=== PATIENT | female | born 1955 | race Caucasian/White ===

== ENCOUNTER 2017-08-16 20:20 | Inpatient (IN) | payer BC ==
[~2017-08-16] VITALS: Ht 157.5 cm; Wt 80.3 kg
[~2017-08-16 20:20] MED LIST: AMOX-423 PO; PRO40 PO; ROSU10TA PO; TRAM50TA92 PO
[2017-08-16 20:35] VITALS: BP_SYST 162
--- NOTE | 2017-08-16 20:47 | NUR ---
Patient to ER bed 8 to gown for evaluation. Side rails up.
--- NOTE | 2017-08-16 20:58 | NUR ---
Pt in bed 8 with c/o flank and pelvic pain . Dr Bradley aware.
--- NOTE | 2017-08-16 20:59 | NUR ---
ER at bedside examining patient.
[2017-08-16] MEDS ORDERED: KETOROLAC TROMETHAMINE 30 MG VIAL IVP ONE (21:00)
[2017-08-16] MEDS ORDERED: MORPHINE 4 MG/ML INJ. SYRINGE IVP ONE (21:00)
[2017-08-16] MEDS ORDERED: NACL 0.9% 1,000 ML IV ONE (21:00)
[2017-08-16 21:04] LABS: BILIRUBIN,URINE NEGATIVE (NEGATIVE); BLOOD, URINE 3+ (NEGATIVE); CLARITY/URINE SL HAZY (CLEAR); COLOR,URINE YELLOW (YELLOW); GLUCOSE,URINE NEGATIVE (NEGATIVE); KETONES,URINE NEGATIVE (NEGATIVE); LEUKOCYTE ESTERASE ,URINE 1+ (NEGATIVE); NITRITE, URINE NEGATIVE (NEGATIVE); PROTEIN URINE TRACE (NEGATIVE); UROBILINOGEN,URINE 0.2 (0.2-1.0)
--- NOTE | 2017-08-16 21:10 | NUR ---
# 20 gauge angiocath placed to LAC. Use of asceptic technique. Opsite placed over site. Blood return noted. Blood for lab drawn from site. Flushed with 10 cc of normal saline. No evidence of infiltration noted. Patient tolerated well.
[2017-08-16 21:15] LABS: BACTERIA,URINE MODERATE /HPF (None Seen); MUCUS,URINE None Seen /LPF (None Seen); RBC,URINE 50-80 /HPF (0-3); WBC,URINE 0-3 /HPF (0-3)
[2017-08-16 21:26] LABS: BASOPHILS % (AUTO) 0.7 % (0.0-2.0); EOSINOPHILS # (AUTO) 0.1 K/uL (0.0-0.4); EOSINOPHILS % (AUTO) 2.3 % (0.0-4.0); HEMATOCRIT 44.5 % (36-48); HEMOGLOBIN 15.1 g/dL (12.0-16.0); LYMPHOCYTES # (AUTO) 1.4 K/uL (1.0-5.5); LYMPHOCYTES % (AUTO) 28.9 % (20.5-51.5); MEAN CORPUSCULAR HEMOGLOBIN 31 pg (27-31); MEAN CORPUSCULAR HGB CONC 34 % (32-36); MEAN CORPUSCULAR VOLUME 90 fL (79.0-98.0); MONOCYTES # (AUTO) 0.6 K/uL (0.0-1.0); MONOCYTES % (AUTO) 11.3 % (1.7-9.3); NEUTROPHILS # (AUTO) 2.8 K/uL (1.8-7.7); NEUTROPHILS % (AUTO) 56.8 % (40.0-70.0); PLATELET COUNT (AUTO) 214 K/uL (130-430); RED BLOOD CELL COUNT(AUTO) 4.92 MIL/uL (4.2-6.2); RED CELL DISTRIBUTION WIDTH 11.9 % (9.0-15.0); WHITE BLOOD COUNT (AUTO) 4.9 K/uL (4.8-10.8)
[2017-08-16] MEDS ORDERED: cefTRIAXone 1 GM IVPB PREMIX 50 ML IV ONE (21:30)
[2017-08-16 21:31] LABS: CALCIUM 8.8 mg/dL (8.4-11.0); CREATININE 0.64 mg/dL (0.55-1.30); POTASSIUM 3.5 mmol/L (3.5-5.1)
--- NOTE | 2017-08-16 21:40 | NUR ---
Per ED MD Bradley, blood cultures not to be obtained for administration of IV ABX. Urine culture ordered prior to administration of ABX.
[2017-08-16 21:43] LABS: ALBUMIN 3.4 g/dL (3.4-4.8); TOTAL BILIRUBIN 0.2 mg/dL (0.0-1.0)
--- NOTE | 2017-08-16 21:45 | NUR ---
Patient transported to radiology via gurney, accompanied by cardiac technologist.
--- NOTE | 2017-08-16 21:58 | NUR ---
Returned from radiology, back to [facility].
[2017-08-16] MEDS ORDERED: GABA-529 PO (22:50)
[2017-08-16] MEDS ORDERED: ACETAMINOPHEN 325 MG TABLET PO PRN (23:00)
[2017-08-16] MEDS ORDERED: ONDANSETRON HCL 4 MG/2 ML VIAL IVP PRN (23:00)
[2017-08-16] MEDS ORDERED: HYDROcodone/ACETAMIN 5-325 MG TAB (NORCO/ VICODIN) PO PRN (23:00)
--- NOTE | 2017-08-16 23:09 | NUR ---
Patient will be admitted to care of DR HERNANDEZ. Admitted to M/S unit. Belongings list completed. Summary report printed. Report will be given at bedside.
--- NOTE | 2017-08-16 23:19 | NUR ---
ADMISSION NOTE Received patient from ER via [facility], received report from Moira ECHEVERRIA. Patient admitted with diagnosis of Renal Colic / Hydronephrosis. Patient oriented to hospital routine, call light, toileting and safety-patient verbalized understanding.
--- NOTE | 2017-08-16 23:20 | NUR ---
Admitted to M/S unit. Transported to room 116A . Summary report printed. Report given to Torres ECHEVERRIA at bedside.
[2017-08-16 23:30] VITALS: BP_SYST 127
--- NOTE | 2017-08-16 23:34 | NUR ---
INITIAL NOTE Patient resting on the bed. No acute distress. AAO x 4. Stated the abdomen pain started come again a little bit. Skin warm and dry to touch. SL intact to LAC, no redness, no swelling. Daughter at bedside. Discussed the safety issue, use call light when need help, and plan of care, verbally understanding. Safety measure maintained. Bed locked with low position, side rails up. Call light within reached. Will continue to monitor
[2017-08-17] VITALS (7 sets, daily range): BP systolic 121–141
[2017-08-17] MEDS: KCL 20 mEq in NS 1000 mL 1,000 ML IV SCH ×3 (00:08→20:08)
[2017-08-17] MEDS: MORPHINE 2 MG/ML INJ. SYRINGE IVP PRN ×3 (01:30→20:10)
--- NOTE | 2017-08-17 01:30 | NUR ---
MORPHINE GIVEN Patient c/o abdomen pain 12/29, Morphine 1mg IVP given as ordered. No acute distress. IV intact, IVF infusing well. Safety measure maintained. Bed locked with low position, side rails up. Call light within reached. Continue to monitor.
--- NOTE | 2017-08-17 01:30 | NUR ---
Consult Called for Nicolas Ca Reason for consultation: Hydronephrosis Person who was notified: Carmel Marin by Dr. Farrell
--- NOTE | 2017-08-17 03:42 | NUR ---
ROUND Patient resting on the bed. Respiration even and unlabored. No acute distress. IV intact, IVF infusing well. Safety measure maintained. Bed locked with low position, side rails up. Call light within reached. Continue to monitor.
--- NOTE | 2017-08-17 05:08 | NUR ---
BATHROOM Ambulated to bathroom with assistance, void freely with yellow urine. Assisted back to bed. No acute distress. Respiration even and unlabored. Denied of pain at this time. IV intact, IVF infusing well. Safety measure maintained. Bed locked with bed alarm, side rails up. Call light within reached. Continue to monitor.
[2017-08-17 06:46] LABS: BASOPHILS % (AUTO) 0.5 % (0.0-2.0); EOSINOPHILS # (AUTO) 0.2 K/uL (0.0-0.4); EOSINOPHILS % (AUTO) 2.8 % (0.0-4.0); HEMATOCRIT 42.3 % (36-48); HEMOGLOBIN 14.3 g/dL (12.0-16.0); LYMPHOCYTES # (AUTO) 1.5 K/uL (1.0-5.5); LYMPHOCYTES % (AUTO) 27.2 % (20.5-51.5); MEAN CORPUSCULAR HEMOGLOBIN 31 pg (27-31); MEAN CORPUSCULAR HGB CONC 34 % (32-36); MEAN CORPUSCULAR VOLUME 91 fL (79.0-98.0); MONOCYTES # (AUTO) 0.6 K/uL (0.0-1.0); MONOCYTES % (AUTO) 11.5 % (1.7-9.3); NEUTROPHILS # (AUTO) 3.1 K/uL (1.8-7.7); PLATELET COUNT (AUTO) 200 K/uL (130-430); RED BLOOD CELL COUNT(AUTO) 4.63 MIL/uL (4.2-6.2); RED CELL DISTRIBUTION WIDTH 12.2 % (9.0-15.0); WHITE BLOOD COUNT (AUTO) 5.4 K/uL (4.8-10.8)
--- NOTE | 2017-08-17 06:55 | NUR ---
CLOSING NOTE Patient resting on the bed. No acute distress. Denied of pain at this time. Skin warm and dry to touch. IV intact to LAC, no redness, no swelling.On KCL 20mEq in NS at 100ml/hr, infusing well. All needs met. Hourly rounding during shift. Assisted to bathroom. Safety measure maintained. Bed locked with low position, side rails up. Call light within reached. Will endorse to morning shift nurse.
[2017-08-17 07:32] LABS: CREATININE 0.39 mg/dL (0.55-1.30); POTASSIUM 3.4 mmol/L (3.5-5.1); TOTAL BILIRUBIN 0.4 mg/dL (0.0-1.0)
--- NOTE | 2017-08-17 08:00 | NUR ---
Initial notes: Patient on bed awake, alert and oriented. Stable. I.V. access patent. Discussed plan of care. Safety measures in placed. Call light within reach. Report received at bedside.
[2017-08-17] MEDS: GABAPENTIN 100 MG CAPSULE PO SCH ×2 (08:34→20:09)
[2017-08-17] MEDS: FAMOTIDINE 20 MG TABLET PO SCH (08:34)
--- NOTE | 2017-08-17 08:36 | NUR ---
rounds: Patient on bed resting. talking to staff. no distress noted.
[2017-08-17] MEDS ORDERED: cefTRIAXone 1 GM IVPB PREMIX 50 ML IV ONE (11:00)
[2017-08-17] MEDS ORDERED: POTASSIUM CHLORIDE 10 MEQ TAB.PRT.SR PO ONE (11:00)
--- NOTE | 2017-08-17 11:54 | NUR ---
rounds: patient on bed talking to CM. No distress noted.
[2017-08-17] MEDS ORDERED: TAMSULOSIN HCL 0.4 MG CAP PO ONE (12:30)
--- NOTE | 2017-08-17 12:47 | NUR ---
Rounds: patient on bed resting. no distress noted.
--- NOTE | 2017-08-17 15:03 | NUR ---
CONSULTATION WAS CALLED RE: H/O UC LOOSE BM DAILY WITH SPECKS OF BLOOD SPOKE WITH TOMAS FROM DR. FISHER OFFICE .
--- NOTE | 2017-08-17 16:36 | NUR ---
transfer of care: Patient transfer of care to JACKI Mott. Report given at bedside.
--- NOTE | 2017-08-17 16:50 | NUR ---
TRANSFER OF CARE Received pt in bed, no s/s of distress or sob noted, pt has no c/o pain at this time, pt in stable condition, pt aaox4, verbal. IV catheter patent, no signs of infection or infiltration noted, IV fluids running as prescribed. Bed at lowest position, call light within reach, will continue to monitor pt for any changes, safety precautions in place.
--- NOTE | 2017-08-17 18:47 | NUR ---
CLOSING NOTE Pt in bed, no s/s of distress or sob noted, pt has no c/o pain at this time, pt in stable condition, pt aaox4, verbal. IV catheter patent, no signs of infection or infiltration noted, IV fluids running as prescribed. Bed at lowest position, call light within reach, will endorse care of pt to incoming nurse, safety precautions in place.
--- NOTE | 2017-08-17 19:52 | NUR ---
INITIAL NOTES Received patient on bed awake and alert with family on the bedside on semi ramos's position, maintained position of comfort maintained safety precautions, breathing even and unlabored, no sob noted with pain level of 7/10 on the abdomen and back area. explained the plan of care and verbalized understanding. encouraged deep breathing and relaxation. will continue to monitor call light within reach.
[2017-08-17] MEDS ORDERED: LACTOBACILLUS RHAMNOSUS GG 1 CAP CAPSULE PO ONE (21:30)
--- NOTE | 2017-08-17 21:55 | NUR ---
rn rounds Patient on bed sleeping and resting, breathing even and unlabored, maintained position of comfort, maintained safety precaution, will continue to monitor call light within reach
[2017-08-17] MEDS ORDERED: metroNIDAZOLE 500 mg/NS 200 ML IV ONE (22:56)
[2017-08-17] MEDS: metroNIDAZOLE 500 mg/NS 100 ML IV SCH (23:00)
--- NOTE | 2017-08-18 | NUR ---
RN ROUNDS PATIENT ON BED SLEEPING AND RESTING BREATHING EVEN AND UNLABORED, DUE MEDICATIONS GIVEN, INSTRUCTIONS GIVEN TO COLLECT STOOL AND VERBALIZED UNDERSTANDING. WILL CONTINUE TO MONITOR, CALL LIGHT WITHIN REACH.
--- NOTE | 2017-08-18 04:00 | NUR ---
RN ROUNDS PATIENT ON BED SLEEPING AND RESTING BREATHING EVEN AND UNLABORED NO SOB NOTED MAINTAINED POSITION OF COMFORT MAINTAINED SAFETY PRECAUTION, NO PAIN NOTED. CALL LIGHT WITHIN REACH WILL CONTINUE TO MONITOR.
[2017-08-18] MEDS: metroNIDAZOLE 500 mg/NS 100 ML IV SCH ×3 (05:41→21:04)
--- NOTE | 2017-08-18 06:36 | NUR ---
RN NOTES PATIENT ON BED SLEEPING AND RESTING BREATHING EVEN AND UNLABORED NO SOB NOTED NO PAIN NOTED MAINTAINED SAFETY PRECAUTIONS MAINTAINED POSITION OF COMFORT PATIENT WILL STILL NEED TO COLLECT STOOL SAMPLE, PATIENT UNDERSTANDS WELL. WILL CONTINUE TO MONITOR CALL LIGHT WITHIN REACH.
--- NOTE | 2017-08-18 06:58 | NUR ---
CLOSING NOTE NO CHANGES NOTED, WILL GIVE REPORT OT AM NURSE WILL CONTINUE TO MONITOR, CALL LIGHT WITHIN REACH.
[2017-08-18 07:17] LABS: BASOPHILS % (AUTO) 0.7 % (0.0-2.0); EOSINOPHILS # (AUTO) 0.1 K/uL (0.0-0.4); EOSINOPHILS % (AUTO) 2.2 % (0.0-4.0); HEMATOCRIT 47.8 % (36-48); HEMOGLOBIN 15.7 g/dL (12.0-16.0); LYMPHOCYTES # (AUTO) 1.5 K/uL (1.0-5.5); LYMPHOCYTES % (AUTO) 28.6 % (20.5-51.5); MEAN CORPUSCULAR HEMOGLOBIN 30 pg (27-31); MEAN CORPUSCULAR HGB CONC 33 % (32-36); MEAN CORPUSCULAR VOLUME 91 fL (79.0-98.0); MONOCYTES # (AUTO) 0.5 K/uL (0.0-1.0); MONOCYTES % (AUTO) 10.5 % (1.7-9.3); NEUTROPHILS # (AUTO) 3.1 K/uL (1.8-7.7); PLATELET COUNT (AUTO) 220 K/uL (130-430); RED BLOOD CELL COUNT(AUTO) 5.24 MIL/uL (4.2-6.2); WHITE BLOOD COUNT (AUTO) 5.2 K/uL (4.8-10.8)
[2017-08-18 07:41] LABS: ALBUMIN 3.5 g/dL (3.4-4.8); CREATININE 0.58 mg/dL (0.55-1.30); POTASSIUM 3.7 mmol/L (3.5-5.1); THYROID STIMULATING HORMONE 0.79 uIu/mL (0.34-4.82); TOTAL BILIRUBIN 0.5 mg/dL (0.0-1.0)
[2017-08-18] MEDS: LACTOBACILLUS RHAMNOSUS GG 1 CAP CAPSULE PO SCH ×2 (08:28→21:03)
[2017-08-18] MEDS: FAMOTIDINE 20 MG TABLET PO SCH (08:28)
[2017-08-18] MEDS: TAMSULOSIN HCL 0.4 MG CAP PO SCH (08:29)
[2017-08-18] MEDS: GABAPENTIN 100 MG CAPSULE PO SCH ×2 (08:29→21:03)
[2017-08-18 08:30] VITALS: BP_SYST 145
[2017-08-18] MEDS: cefTRIAXone 1 GM IVPB PREMIX 50 ML IV SCH (08:30)
--- NOTE | 2017-08-18 08:30 | NUR ---
OPENING NOTE LATE ENTRY DUE TO PT CARE: REPORT IS RECEIVED FROM RA[employer]WAY [employer] WORKER NURSE AND CARE IS ENDORSED OVER TO MYSELF. PT IS RECEIVED AWAKE, ALERT, AND ORIENTED X4. NO SIGNS OR SYMPTOMS OF DISTRESS OR SOB NOTED. PT DENIES ANY PAIN. WHITE BOARD IS UPDATED WITH CURRENT INFORMATION. PT ADVISED THAT WE NEED TO COLLECT STOOL SAMPLE AND A HAT FOR THE RESTROOM WAS PROVIDED. PT WAS ALSO ADVISED THAT ALL URINE NEEDS TO BE STRAINED. CURRENT NEEDS ARE MET BED IS AT LOWEST POSITION, CALL LIGHT WITHIN REACH, TWO SIDE RAILS UP, BED ALARM IS ON. WILL CONTINUE TO MONITOR.
[2017-08-18] MEDS: KCL 20 mEq in NS 1000 mL 1,000 ML IV SCH ×3 (10:23→22:19)
[2017-08-18] MEDS: MORPHINE 2 MG/ML INJ. SYRINGE IVP PRN ×2 (10:24→14:35)
--- NOTE | 2017-08-18 10:30 | NUR ---
ROUNDS LATE ENTRY DUE TO PT CARE: PT IS SLEEPING BUT IS EASILY AWAKEN. NO SIGNS OR SYMPTOMS OF DISTRESS OR SOB NOTED. PT COMPLAINED OF PAIN AND WAS GIVEN MORPHINE FOR HEADACHE OF 7 OUT OF 10. PT ADVISED TO USE CALL LIGHT FOR INCREASE RISK OF FALLS. DAUGHTER IS AT BEDSIDE. CURRENT NEEDS ARE MET. BED IS AT LOWEST POSITION, CALL LIGHT WITHIN REACH, TWO SIDE RAILS UP, BED ALARM IS ON. WILL CONTINUE TO MONITOR.
[2017-08-18 12:22] VITALS: BP_SYST 132
--- NOTE | 2017-08-18 12:30 | NUR ---
ROUNDS LATE ENTRY DUE TO PT CARE: PT IS AWAKE AND ALERT. NO SIGNS OR SYMPTOMS OF DISTRESS OR SOB NOTED. PT DENIES ANY PAIN. STOOL SAMPLE WAS TAKEN TO LAB. CURRENT NEEDS ARE MET. BED IS AT LOWEST POSITION, CALL LIGHT WITHIN REACH, TWO SIDE RAILS UP, BED ALARM IS ON. WILL CONTINUE TO MONITOR.
--- NOTE | 2017-08-18 14:30 | NUR ---
ROUNDS LATE ENTRY DUE TO PT CARE: PT IS SLEEPING BUT IS EASILY AWAKEN. NO SIGNS OR SYMPTOMS OF DISTRESS OR SOB NOTED. PT COMPLAINED OF HEADACHE AND PAIN OF 8 OUR OF 10 AND WAS GIVEN PRN MORPHINE AND ADVISED OF INCREASE RISK FOR FALL AND TO USE THE CALL LIGHT IF SHE WANTS TO GET UP. SPOUSE IS AT BEDSIDE. CURRENT NEEDS ARE MET. BED IS AT LOWEST POSITION, CALL LIGHT WITHIN REACH, TWO SIDE RAILS UP, BED ALARM IS ON. WILL CONTINUE TO MONITOR.
[2017-08-18 16:27] VITALS: BP_SYST 145
--- NOTE | 2017-08-18 16:28 | NUR ---
MD GUY CALLED LISANDRA POOLE AT [phone] SPOKE WITH RICHMOND.
--- NOTE | 2017-08-18 16:30 | NUR ---
ROUNDS LATE ENTRY DUE TO PT CARE: PT IS SLEEPING BUT IS EASILY AWAKEN. NO SIGNS OR SYMPTOMS OF DISTRESS OR SOB NOTED. PT COMPLAINS OF NAUSEA AND WAS GIVEN PRN ZOFRAN. CURRENT NEEDS ARE MET. BED IS AT LOWEST POSITION, CALL LIGHT WITHIN REACH, TWO SIDE RAILS UP, BED ALARM IS ON. WILL CONTINUE TO MONITOR.
--- NOTE | 2017-08-18 18:43 | NUR ---
DR. SERRA SPOKE WITH DR. SERRA TO CLARIFY SIGMOIDOSCOPY FOR TOMORROW AND STATED THAT NO VIGNESH JUST THE ORAL MAG. PT HAS SIGNED CONCENT.
[2017-08-18] MEDS ORDERED: MAGNESIUM CITRATE 300 ML ORAL SOLUTION PO ONE (19:00)
--- NOTE | 2017-08-18 19:55 | NUR ---
PM OPENING NOTES RECEIVED PATIENT ON BED, AWAKE, ALERT AND VERBALLY RESPONSIVE WATCHING TV AT THIS TIME. NO SIGN OF RESPIRATORY DISTRESS AND NO COMPLAIN OF PAIN AT THIS TIME. IV SITE ON THE LEFT ANTECUBITAL IS INTACT WITH NO S/SX. OF INFILTRATION AND IVF INFUSING WELL AT THIS TIME. WILL CONTINUE TO MONITOR. CALL LIGHT WITHIN REACH.
[2017-08-18 20:00] VITALS: BP_SYST 137
[2017-08-19 00:20] VITALS: BP_SYST 125
--- NOTE | 2017-08-19 00:21 | NUR ---
ROUNDS NOTES PATIENT ON BED, SLEEPING WITH NO SIGN OF RESPIRATORY DISTRESS AND IVF INFUSING WELL AT THIS TIME. WILL CONTINUE TO MONITOR. CALL LIGHT WITHIN REACH.
[2017-08-19] MEDS: metroNIDAZOLE 500 mg/NS 100 ML IV SCH ×2 (05:13→15:45)
--- NOTE | 2017-08-19 06:46 | NUR ---
CLOSING NOTES PATIENT ON BED, SLEEPING WITH NO SIGN OF RESPIRATORY DISTRESS AND IVF INFUSING WELL AT THIS TIME. ALL NEEDS ATTENDED AND MET BY STAFF. CALL LIGHT WITHIN REACH.
[2017-08-19 06:56] LABS: BASOPHILS % (AUTO) 0.6 % (0.0-2.0); EOSINOPHILS # (AUTO) 0.1 K/uL (0.0-0.4); EOSINOPHILS % (AUTO) 2.3 % (0.0-4.0); HEMATOCRIT 43.2 % (36-48); HEMOGLOBIN 14.6 g/dL (12.0-16.0); LYMPHOCYTES # (AUTO) 1.3 K/uL (1.0-5.5); MEAN CORPUSCULAR HEMOGLOBIN 31 pg (27-31); MEAN CORPUSCULAR HGB CONC 34 % (32-36); MEAN CORPUSCULAR VOLUME 91 fL (79.0-98.0); MONOCYTES # (AUTO) 0.5 K/uL (0.0-1.0); MONOCYTES % (AUTO) 11.5 % (1.7-9.3); NEUTROPHILS # (AUTO) 2.6 K/uL (1.8-7.7); NEUTROPHILS % (AUTO) 57.6 % (40.0-70.0); PLATELET COUNT (AUTO) 214 K/uL (130-430); RED BLOOD CELL COUNT(AUTO) 4.76 MIL/uL (4.2-6.2); RED CELL DISTRIBUTION WIDTH 11.9 % (9.0-15.0); WHITE BLOOD COUNT (AUTO) 4.5 K/uL (4.8-10.8)
[2017-08-19 07:05] LABS: PROTHROMBIN TIME 10.2 SECS (9.5-12.5)
[2017-08-19 07:14] LABS: CALCIUM 8.7 mg/dL (8.4-11.0); CREATININE 0.56 mg/dL (0.55-1.30); POTASSIUM 3.2 mmol/L (3.5-5.1)
--- NOTE | 2017-08-19 07:27 | NUR ---
OPENING NOTE: RECEIVED PATIENT FROM RONNY NOGUERA NURSE. PATIENT IS AWAKE, ALERT, AND ORIENTEDX4. NO ACUTE SIGNS OF RESP DISTRESS, NO SOB. BREATHING EVEN AND UNLABORED. IV INTACT AND PATENT, NO REDNESS/SWELLING TO SITE. IVF INFUSING WELL. DENIES PAIN AT THIS TIME. EDUCATED PATIENT WITH TODAYS PLAN OF CARE, PATIENT VERBALIZED UNDERSTANDING. SAFETY MEASURES IN PLACE.
[2017-08-19 08:00] VITALS: BP_SYST 137
[2017-08-19] MEDS: KCL 20 mEq in NS 1000 mL 1,000 ML IV SCH (08:56)
[2017-08-19] MEDS: cefTRIAXone 1 GM IVPB PREMIX 50 ML IV SCH (08:56)
[2017-08-19] MEDS: GABAPENTIN 100 MG CAPSULE PO SCH (08:57)
[2017-08-19] MEDS: LACTOBACILLUS RHAMNOSUS GG 1 CAP CAPSULE PO SCH (08:57)
[2017-08-19] MEDS ORDERED: MEPERIDINE HCL/PF 100 MG/ML AMP ONE (10:00)
[2017-08-19] MEDS ORDERED: SIMETHICONE 40 MG/0.6 ML ML ONE (10:00)
[2017-08-19] MEDS ORDERED: MIDAZOLAM HCL 5 MG/5 ML VIAL ONE (10:00)
--- NOTE | 2017-08-19 10:01 | NUR ---
ROUNDING: PATIENT RESTING IN BED. AM IV MEDICATIONS GIVEN PER MD ORDERS. PO MEDICATIONS HELD PER NPO FOR COLONOSCOPY TODAY. NO ACUTE SIGNS OF RESP DISTRESS, NO SOB. BREATHING EVEN AND UNLABORED. IV INTACT AND PATENT, NO REDNESS/SWELLING TO SITE. IVF INFUSING WELL. UPDATED WITH PLAN OF CARE FOR TODAY, PATIENT VERBALIZED UNDERSTANDING. SAFETY PRECAUTIONS IN PLACE.
--- NOTE | 2017-08-19 12:00 | NUR ---
ROUNDING: PATIENT RESTING IN BED COMFORTABLY. NO ACUTE SIGNS OF RESP DISTRESS, NO SOB. BREATHING EVEN AND UNLABORED. DENIES SOB AND PAIN. ALL NEEDS MET AT THIS TIME. IV INTACT AND PATENT, NO REDNESS/SWELLING/PAIN TO SITE. BED AT LOWEST POSITION, CALL LIGHT IN REACH. CONTINUE TO MONITOR.
--- NOTE | 2017-08-19 12:55 | NUR ---
PATIENT LEFT TO GI: PATIENT LEFT TO GI FOR COLONOSCOPY VIA WHEELCHAIR. NO ACUTE SIGNS OF RESP DISTRESS.
[2017-08-19 14:19] VITALS: BP_SYST 133
[2017-08-19] MEDS ORDERED: POTASSIUM CHLORIDE 20 MEQ TAB.PRT.SR PO ONE (15:15)
[2017-08-19] MEDS: FAMOTIDINE 20 MG TABLET PO SCH (15:44)
[2017-08-19] MEDS: TAMSULOSIN HCL 0.4 MG CAP PO SCH (15:44)
--- NOTE | 2017-08-19 15:53 | NUR ---
PATIENT BACK FROM GI LAB: PATIENT BACK FROM GI LAB. PATIENT IS AWAKE, ALERT, AND ORIENTEDX4. NO ACUTE SIGNS OF RESP DISTRESS, NO SOB. BREATHING EVEN AND UNLABORED. SKIN WARM DRY AND COLOR NORMAL FOR ETHNICITY. IV INTACT AND PATENT, NO REDNESS/SWELLING AROUND SITE. VITAL SIGNS WNL. DENIES PAIN AT THIS TIME. DENIES NAUSEA/VOMITING. ALL NEEDS MET. BED AT LOWEST POSITION, CALL LIGHT IN REACH. CONTINUE TO MONITOR.
[2017-08-19 16:23] VITALS: BP_SYST 143
[2017-08-19 16:33] VITALS: BP_SYST 137
--- NOTE | 2017-08-19 17:00 | NUR ---
ROUNDING: PATIENT RESTING IN BED. UPDATED WITH PLAN OF CARE, PATIENT VERBALIZED UNDERSTANDING. NO ACUTE SIGNS OF RESP DISTRESS, NO SOB. BREATHING EVEN AND UNLABORED. SAFETY MEASURES IN PLACE.
[2017-08-19 17:23] VITALS: BP_SYST 104
--- NOTE | 2017-08-19 18:38 | NUR ---
D/C Patient Patient given medication reconciliation form and D/C instructions. Exit Care provided. Patient verbalized understanding. MD discussed with patient the results and treatment provided. Ambulatory with steady gait for discharge to home. Patient in stable condition, ID band removed. IV catheter removed, intact and dressing applied, no active bleeding. Rx of given. Patient educated on pain management. All belongings sent with patient. Educated patient to follow up with Dr. Farrell next week, patient verbalized understanding.
== END 2017-08-19 18:38 | disposition home or self-care (01) | DRG 386 ==
LOC: SED 20:20 → SMU 22:53
PROVIDERS: ADMIT Internal Medicine; ATTEND Internal Medicine
PROC: 0DBB8ZX Excision of Ileum, Via Natural or Artificial Opening Endoscopic, Diagnostic (ICD-10-PCS; 2017-08-19)
PROC: 0DBQ8ZX Excision of Anus, Via Natural or Artificial Opening Endoscopic, Diagnostic (ICD-10-PCS; principal; 2017-08-19 13:00)
DX: K50.90 Crohn's disease, unspecified, without complications (principal); N13.2 Hydronephrosis with renal and ureteral calculous obstruction; E27.8 Other specified disorders of adrenal gland; K91.850 Pouchitis; N39.0 Urinary tract infection, site not specified; K62.4 Stenosis of anus and rectum; I10 Essential (primary) hypertension; M79.7 Fibromyalgia; R73.9 Hyperglycemia, unspecified; E78.5 Hyperlipidemia, unspecified; E87.6 Hypokalemia; Y83.8 Other surgical procedures as the cause of abnormal reaction of the patient, or of later complication, without mention of misadventure at the time of the procedure; Y92.89 Other specified places as the place of occurrence of the external cause; Z85.038 Personal history of other malignant neoplasm of large intestine; Z87.442 Personal history of urinary calculi; Z90.710 Acquired absence of both cervix and uterus; Z90.49 Acquired absence of other specified parts of digestive tract
CPT/HCPCS: 36415; 80048; 80053; 81000-TC; 83735-TC; 84443-TC; 85025; 85610-TC; 85730-TC; 87040-TC; 87045-TC; 87046; 87086; 87177; 87230-TC; 88304; 88305; 89055; 96365; 96375; 99285; J0696; J1885; J2175; J2250; J2270; J2405; J3480; J3490; J7030

== ENCOUNTER 2018-04-08 12:40 | Outpatient (CLI) | payer BC ==
[~2018-04-08 12:40] MED LIST changes: -AMOX-423 PO; +GABA-529 PO; -PRO40 PO; -ROSU10TA PO; -TRAM50TA92 PO
== END 2018-04-08 20:06 | disposition home or self-care (01) ==
LOC: SUS 12:40
PROVIDERS: ATTEND Internal Medicine
DX: M47.896 Other spondylosis, lumbar region (principal); N23 Unspecified renal colic; N83.8 Other noninflammatory disorders of ovary, fallopian tube and broad ligament; M19.90 Unspecified osteoarthritis, unspecified site; Z90.710 Acquired absence of both cervix and uterus; Z85.038 Personal history of other malignant neoplasm of large intestine
CPT/HCPCS: 72110; 76770; 76830-TC; 76857

== ENCOUNTER 2018-06-10 10:34 | Inpatient (IN) | payer BC ==
[~2018-06-10] VITALS: Ht 157.5 cm; Wt 70.8 kg
[2018-06-10 10:34] VITALS: BP_SYST 139
[2018-06-10] MEDS ORDERED: ONDANSETRON HCL 4 MG/2 ML VIAL IVP ONE (11:00)
[2018-06-10] MEDS ORDERED: fentaNYL CITRATE/PF 100 MCG/2 ML AMP IVP ONE (11:00)
[2018-06-10 11:20] LABS: BASOPHILS % (AUTO) 0.3 % (0.0-2.0); EOSINOPHILS % (AUTO) 0.8 % (0.0-4.0); HEMOGLOBIN 17.3 g/dL (12.0-16.0); LYMPHOCYTES # (AUTO) 1.2 K/uL (1.0-5.5); LYMPHOCYTES % (AUTO) 21.2 % (20.5-51.5); MEAN CORPUSCULAR HEMOGLOBIN 30 pg (27-31); MEAN CORPUSCULAR HGB CONC 34 % (32-36); MEAN CORPUSCULAR VOLUME 90 fL (79.0-98.0); MONOCYTES # (AUTO) 0.8 K/uL (0.0-1.0); MONOCYTES % (AUTO) 13.4 % (1.7-9.3); NEUTROPHILS # (AUTO) 3.9 K/uL (1.8-7.7); NEUTROPHILS % (AUTO) 64.3 % (40.0-70.0); PLATELET COUNT (AUTO) 242 K/uL (130-430); RED BLOOD CELL COUNT(AUTO) 5.67 MIL/uL (4.2-6.2); RED CELL DISTRIBUTION WIDTH 12.5 % (9.0-15.0); WHITE BLOOD COUNT (AUTO) 5.9 K/uL (4.8-10.8)
[2018-06-10 11:31] LABS: BILIRUBIN,URINE 1+ (NEGATIVE); BLOOD, URINE 1+ (NEGATIVE); CLARITY/URINE CLEAR (CLEAR); COLOR,URINE YELLOW (YELLOW); GLUCOSE,URINE NEGATIVE (NEGATIVE); KETONES,URINE TRACE (NEGATIVE); LEUKOCYTE ESTERASE ,URINE NEGATIVE (NEGATIVE); NITRITE, URINE NEGATIVE (NEGATIVE); PROTEIN URINE NEGATIVE (NEGATIVE); UROBILINOGEN,URINE 0.2 (0.2-1.0)
[2018-06-10 11:52] LABS: POTASSIUM 3.2 mmol/L (3.5-5.1)
[2018-06-10 11:53] LABS: CALCIUM 9.6 mg/dL (8.4-11.0); CREATININE 0.7 mg/dL (0.55-1.30)
[2018-06-10 11:58] LABS: ALBUMIN 3.9 g/dL (3.4-4.8)
[2018-06-10 12:18] LABS: BACTERIA,URINE FEW /HPF (None Seen); MUCUS,URINE None Seen /LPF (None Seen); RBC,URINE 0-3 /HPF (0-3); WBC,URINE 0-3 /HPF (0-3)
[2018-06-10] MEDS ORDERED: MINERAL OIL 133 ML ENEMA RC ONE (13:00)
[2018-06-10] MEDS ORDERED: MAGNESIUM CITRATE 300 ML ORAL SOLUTION PO ONE (15:30)
[2018-06-10] MEDS ORDERED: ACETAMINOPHEN 325 MG TABLET PO PRN (17:30)
[2018-06-10] MEDS ORDERED: PANTOPRAZOLE SODIUM 40 MG/VIAL (PROTONIX) IVP ONE (17:30)
[2018-06-10] MEDS ORDERED: POTASSIUM CHLORIDE 20 MEQ TAB.PRT.SR PO ONE (17:30)
[2018-06-10] MEDS ORDERED: ONDANSETRON HCL 4 MG/2 ML VIAL IVP PRN (17:30)
[2018-06-10 18:00] VITALS: BP_SYST 146
[2018-06-10 18:01] VITALS: BP_SYST 146
[2018-06-10] MEDS: KCL 20 mEq in NS 1000 mL 1,000 ML IV SCH (18:36)
[2018-06-10] MEDS: LEVOFLOXACIN 500 MG/D5W 100 ML IV SCH (18:40)
[2018-06-10] MEDS: MORPHINE 4 MG/ML INJ. SYRINGE IVP PRN ×2 (18:56→23:05)
[2018-06-10 21:00] VITALS: BP_SYST 143
[2018-06-10] MEDS: metroNIDAZOLE 500 mg/NS 100 ML IV SCH (22:51)
[2018-06-11 00:57] VITALS: BP_SYST 137
[2018-06-11] MEDS: KCL 20 mEq in NS 1000 mL 1,000 ML IV SCH ×2 (03:08→17:12)
[2018-06-11] MEDS: metroNIDAZOLE 500 mg/NS 100 ML IV SCH ×3 (06:34→22:19)
[2018-06-11 07:43] LABS: BASOPHILS # (AUTO) 0.1 K/uL (0.0-0.2); BASOPHILS % (AUTO) 1.8 % (0.0-2.0); EOSINOPHILS # (AUTO) 0.1 K/uL (0.0-0.4); EOSINOPHILS % (AUTO) 3.1 % (0.0-4.0); HEMOGLOBIN 14.6 g/dL (12.0-16.0); LYMPHOCYTES # (AUTO) 1.2 K/uL (1.0-5.5); MEAN CORPUSCULAR HEMOGLOBIN 29 pg (27-31); MEAN CORPUSCULAR HGB CONC 32 % (32-36); MEAN CORPUSCULAR VOLUME 92 fL (79.0-98.0); MONOCYTES # (AUTO) 0.6 K/uL (0.0-1.0); MONOCYTES % (AUTO) 16.1 % (1.7-9.3); NEUTROPHILS # (AUTO) 1.7 K/uL (1.8-7.7); PLATELET COUNT (AUTO) 221 K/uL (130-430); RED CELL DISTRIBUTION WIDTH 12.6 % (9.0-15.0)
[2018-06-11 07:49] LABS: WHITE BLOOD COUNT (AUTO) 3.7 K/uL (4.8-10.8)
[2018-06-11 08:02] VITALS: BP_SYST 140
[2018-06-11] MEDS: MORPHINE 4 MG/ML INJ. SYRINGE IVP PRN ×2 (08:04→17:12)
[2018-06-11] MEDS: PANTOPRAZOLE SODIUM 40 MG/VIAL (PROTONIX) IVP SCH (08:04)
[2018-06-11 08:15] LABS: ALBUMIN 2.8 g/dL (3.4-4.8); BILIRUBIN,DIRECT 0.2 mg/dL (0.0-0.3); CALCIUM 8.4 mg/dL (8.4-11.0); CREATININE 0.59 mg/dL (0.55-1.30); THYROID STIMULATING HORMONE 1.11 uIu/mL (0.34-4.82); TOTAL BILIRUBIN 0.8 mg/dL (0.0-1.0)
[2018-06-11 12:00] VITALS: BP_SYST 123
[2018-06-11 17:06] VITALS: BP_SYST 134
[2018-06-11] MEDS: LEVOFLOXACIN 500 MG/D5W 100 ML IV SCH (17:12)
[2018-06-11 20:22] VITALS: BP_SYST 135
[2018-06-12] MEDS: KCL 20 mEq in NS 1000 mL 1,000 ML IV SCH ×3 (02:17→19:22)
[2018-06-12] MEDS: metroNIDAZOLE 500 mg/NS 100 ML IV SCH ×3 (06:15→22:05)
[2018-06-12 06:28] VITALS: BP_SYST 140
[2018-06-12 07:47] VITALS: BP_SYST 139
[2018-06-12] MEDS ORDERED: DIATR MEGLU/DIATRIZ SOD 30 ML SOLUTION PO ONE (08:36)
[2018-06-12] MEDS: POLYETHYLENE GLYCOL 3350, 17 GM/ POWD.PACK PO SCH ×2 (09:00→22:04)
[2018-06-12] MEDS: PANTOPRAZOLE SODIUM 40 MG/VIAL (PROTONIX) IVP SCH (10:23)
[2018-06-12 12:34] VITALS: BP_SYST 147
[2018-06-12] MEDS: LEVOFLOXACIN 500 MG/D5W 100 ML IV SCH (17:03)
[2018-06-12 17:08] VITALS: BP_SYST 129
[2018-06-12 20:10] VITALS: BP_SYST 131
[2018-06-13 01:21] VITALS: BP_SYST 123
[2018-06-13] MEDS: KCL 20 mEq in NS 1000 mL 1,000 ML IV SCH ×2 (06:30→17:44)
[2018-06-13] MEDS: metroNIDAZOLE 500 mg/NS 100 ML IV SCH ×3 (06:31→21:48)
[2018-06-13 08:00] VITALS: BP_SYST 118
[2018-06-13] MEDS: PANTOPRAZOLE SODIUM 40 MG/VIAL (PROTONIX) IVP SCH (08:22)
[2018-06-13] MEDS: POLYETHYLENE GLYCOL 3350, 17 GM/ POWD.PACK PO SCH ×2 (08:22→21:47)
[2018-06-13 09:23] LABS: CALCIUM 8.6 mg/dL (8.4-11.0); CREATININE 0.65 mg/dL (0.55-1.30); POTASSIUM 3.5 mmol/L (3.5-5.1)
[2018-06-13 12:00] VITALS: BP_SYST 143
[2018-06-13] MEDS ORDERED: ZOLPIDEM TARTRATE 5 MG TABLET PO PRN (15:45)
[2018-06-13] MEDS: LEVOFLOXACIN 500 MG/D5W 100 ML IV SCH (17:44)
[2018-06-13 18:52] VITALS: BP_SYST 120
[2018-06-13 19:51] VITALS: BP_SYST 130
[2018-06-14] MEDS: KCL 20 mEq in NS 1000 mL 1,000 ML IV SCH ×2 (03:49→16:19)
[2018-06-14] MEDS: metroNIDAZOLE 500 mg/NS 100 ML IV SCH ×3 (06:08→21:40)
[2018-06-14 07:45] LABS: INR 1.1 (0.8-1.2); PROTHROMBIN TIME 11.6 SECS (9.5-12.5)
[2018-06-14 08:04] VITALS: BP_SYST 126
[2018-06-14] MEDS: PANTOPRAZOLE SODIUM 40 MG/VIAL (PROTONIX) IVP SCH (08:05)
[2018-06-14] MEDS: POLYETHYLENE GLYCOL 3350, 17 GM/ POWD.PACK PO SCH (08:06)
[2018-06-14] MEDS ORDERED: fentaNYL CITRATE/PF 100 MCG/2 ML AMP ONE (10:20)
[2018-06-14] MEDS ORDERED: MIDAZOLAM HCL 5 MG/5 ML VIAL ONE ×2 (10:20→11:11)
[2018-06-14] MEDS ORDERED: SIMETHICONE 40 MG/0.6 ML ML ONE (11:04)
[2018-06-14 15:44] VITALS: BP_SYST 123
[2018-06-14] MEDS: MESALAMINE 250 MG CAPSULE.SA PO SCH ×2 (16:32→21:39)
[2018-06-14] MEDS: LEVOFLOXACIN 500 MG/D5W 100 ML IV SCH (18:48)
[2018-06-14 19:51] VITALS: BP_SYST 126
[2018-06-14] MEDS: LACTOBACILLUS RHAMNOSUS GG 1 CAP CAPSULE PO SCH (21:38)
[2018-06-15] MEDS: KCL 20 mEq in NS 1000 mL 1,000 ML IV SCH (04:15)
[2018-06-15] MEDS: metroNIDAZOLE 500 mg/NS 100 ML IV SCH (06:08)
[2018-06-15 06:59] LABS: BASOPHILS % (AUTO) 0.6 % (0.0-2.0); EOSINOPHILS # (AUTO) 0.1 K/uL (0.0-0.4); EOSINOPHILS % (AUTO) 2.4 % (0.0-4.0); HEMATOCRIT 44.9 % (36-48); HEMOGLOBIN 15.3 g/dL (12.0-16.0); LYMPHOCYTES # (AUTO) 1.3 K/uL (1.0-5.5); LYMPHOCYTES % (AUTO) 26.1 % (20.5-51.5); MEAN CORPUSCULAR HEMOGLOBIN 31 pg (27-31); MEAN CORPUSCULAR HGB CONC 34 % (32-36); MEAN CORPUSCULAR VOLUME 90 fL (79.0-98.0); MONOCYTES # (AUTO) 0.5 K/uL (0.0-1.0); MONOCYTES % (AUTO) 10.4 % (1.7-9.3); NEUTROPHILS # (AUTO) 3.2 K/uL (1.8-7.7); NEUTROPHILS % (AUTO) 60.5 % (40.0-70.0); PLATELET COUNT (AUTO) 217 K/uL (130-430); RED BLOOD CELL COUNT(AUTO) 4.97 MIL/uL (4.2-6.2); RED CELL DISTRIBUTION WIDTH 12.3 % (9.0-15.0); WHITE BLOOD COUNT (AUTO) 5.1 K/uL (4.8-10.8)
[2018-06-15 07:09] LABS: CALCIUM 8.4 mg/dL (8.4-11.0); CREATININE 0.61 mg/dL (0.55-1.30); POTASSIUM 3.8 mmol/L (3.5-5.1)
[2018-06-15 08:30] VITALS: BP_SYST 118
[2018-06-15] MEDS: MESALAMINE 250 MG CAPSULE.SA PO SCH (08:32)
[2018-06-15] MEDS: LACTOBACILLUS RHAMNOSUS GG 1 CAP CAPSULE PO SCH (08:32)
[2018-06-15] MEDS: PANTOPRAZOLE SODIUM 40 MG/VIAL (PROTONIX) IVP SCH (08:33)
[2018-06-15 11:41] VITALS: BP_SYST 125
[2018-06-15 11:54] VITALS: BP_SYST 125
[2018-06-15] MEDS ORDERED: PEN250 PO (11:54)
== END 2018-06-15 12:25 | disposition home or self-care (01) | DRG 386 ==
LOC: SED 10:34 → STU 16:34 → SMU 06-12 17:04
PROVIDERS: ADMIT Internal Medicine; ATTEND Internal Medicine
PROC: 0D7B8ZZ Dilation of Ileum, Via Natural or Artificial Opening Endoscopic (ICD-10-PCS; 2018-06-14)
PROC: 0D7Q8ZZ Dilation of Anus, Via Natural or Artificial Opening Endoscopic (ICD-10-PCS; principal; 2018-06-14 11:00)
PROC: 0DBN8ZX Excision of Sigmoid Colon, Via Natural or Artificial Opening Endoscopic, Diagnostic (ICD-10-PCS; 2018-06-14 11:00)
DX: K50.90 Crohn's disease, unspecified, without complications (principal); K91.850 Pouchitis; E44.0 Moderate protein-calorie malnutrition; K62.4 Stenosis of anus and rectum; K52.9 Noninfective gastroenteritis and colitis, unspecified; E87.6 Hypokalemia; I10 Essential (primary) hypertension; J45.909 Unspecified asthma, uncomplicated; E78.5 Hyperlipidemia, unspecified; E78.00 Pure hypercholesterolemia, unspecified; M79.7 Fibromyalgia; R73.9 Hyperglycemia, unspecified; Z80.0 Family history of malignant neoplasm of digestive organs; Z80.3 Family history of malignant neoplasm of breast; Z80.6 Family history of leukemia; Z90.710 Acquired absence of both cervix and uterus; Z90.49 Acquired absence of other specified parts of digestive tract; Z85.038 Personal history of other malignant neoplasm of large intestine; Z88.1 Allergy status to other antibiotic agents; Z91.018 Allergy to other foods; Z84.1 Family history of disorders of kidney and ureter; Z68.28 Body mass index [BMI] 28.0-28.9, adult
CPT/HCPCS: 36415; 74018; 74250-TC; 80048; 80053; 80076; 81000-TC; 82150-TC; 83690-TC; 83735-TC; 84443-TC; 85025; 85610-TC; 85651-TC; 86140; 88305; 96374; 96375; 99285; C9113; G0378; J1956; J2250; J2270; J2405; J3010; J3480; J3490; J7030; Q9964

== ENCOUNTER 2018-10-11 08:08 | Outpatient (CLI) | payer BC ==
[~2018-10-11 08:08] MED LIST changes: +PEN250 PO
== END 2018-10-12 21:23 | disposition home or self-care (01) ==
LOC: SUS 08:08
PROVIDERS: ATTEND Internal Medicine
DX: E27.8 Other specified disorders of adrenal gland (principal); Z90.710 Acquired absence of both cervix and uterus
CPT/HCPCS: 76830-TC; 76857

== ENCOUNTER 2019-06-10 06:41 | Day surgery (SDC) | payer BC ==
[2019-06-10] MEDS ORDERED: SIMETHICONE 40 MG/0.6 ML ML ONE (07:14)
[2019-06-10] MEDS ORDERED: MIDAZOLAM HCL 5 MG/5 ML VIAL ONE (07:14)
[2019-06-10] MEDS: fentaNYL CITRATE/PF 100 MCG/2 ML AMP ONE ×2 (08:18→08:24)
[2019-06-10] MEDS: MIDAZOLAM HCL 5 MG/5 ML VIAL ONE ×2 (08:18→08:22)
[2019-06-10 13:17] VITALS: BP_SYST 124
== END 2019-06-10 09:50 | disposition home or self-care (01) ==
LOC: SMU 06:41 → SDS 06:41
PROVIDERS: ATTEND Internal Medicine
DX: R10.30 Lower abdominal pain, unspecified (principal); K91.850 Pouchitis; K51.90 Ulcerative colitis, unspecified, without complications; K63.89 Other specified diseases of intestine; I10 Essential (primary) hypertension; Z98.0 Intestinal bypass and anastomosis status; Z87.19 Personal history of other diseases of the digestive system
CPT/HCPCS: 44377; 44381; 88305; G0378; J2250; J3010; J7030; 45378; 45380

== ENCOUNTER 2019-07-11 12:00 | Emergency (ER) | payer BC ==
[~2019-07-11] VITALS: Ht 160 cm; Wt 79.4 kg
[2019-07-11 12:41] VITALS: BP_SYST 161
--- NOTE | 2019-07-11 13:37 | NUR ---
Placed in chair 2. MSE completed by myself.
--- NOTE | 2019-07-11 14:00 | NUR ---
pt c/o upper back pain, pt denies trauma or injury
--- NOTE | 2019-07-11 14:01 | NUR ---
JOCELYNE Montalvo at bedside examining patient.
[2019-07-11] MEDS ORDERED: HYDROcodone/ACETAMIN 5-325 MG TAB (NORCO/ VICODIN) PO ONE (14:45)
--- NOTE | 2019-07-11 15:02 | NUR ---
pt tolerated medication well.
[2019-07-11 15:45] VITALS: BP_SYST 158
--- NOTE | 2019-07-11 15:45 | NUR ---
Patient given written and verbal discharge instructions and verbalizes understanding. ER MD discussed with patient the results and treatment provided. Patient in stable condition. ID arm band removed. I Rx of modic,voltaren given. Patient educated on pain management and to follow up with PMD. Pain Scale 2. Opportunity for questions provided and answered. Medication side effect fact sheet provided.
== END 2019-07-11 15:45 | disposition home or self-care (01) ==
LOC: SED 12:00
DX: M54.6 Pain in thoracic spine (principal); M54.2 Cervicalgia; E78.00 Pure hypercholesterolemia, unspecified
CPT/HCPCS: 72040-TC; 72072-TC; 99283